=== PATIENT | female | born 1990 | race African-American/Black ===

== ENCOUNTER 2017-04-02 14:31 | Emergency (ER) | payer MEDICAID ==
[~2017-04-02] VITALS: Ht 162.6 cm; Wt 60.0 kg
[2017-04-02 14:51] VITALS: BP 144/90
== END 2017-04-02 16:11 | disposition left against medical advice (07) ==
LOC: ER 14:43
DX: R42 Dizziness and giddiness (principal); Z53.21 Procedure and treatment not carried out due to patient leaving prior to being seen by health care provider
CPT/HCPCS: 81025